=== PATIENT | male | born 1940 | race Caucasian/White ===

== ENCOUNTER 2018-10-31 12:34 | Observation (INO) | payer MEDICARE ==
[2018-10-31] MEDS ORDERED: Sodium Chloride 0.9%, Bacteriostatic 10 ML MDV IV STA (12:38)
--- NOTE | 2018-10-31 13:04 | EDM.PDOC ---
ED HPI GENERAL MEDICAL PROBLEM - General Chief Complaint: Trauma Stated Complaint: ACCIDENT Time Seen by Provider: 10/31/18 12:34 Source of Information: Reports: Patient, EMS, RN - History of Present Illness INITIAL COMMENTS - FREE TEXT/NARRATIVE: 78 yr male presents after falling in water, mild hypothermia and tachycardia, shivering. Temperature 91.4. [place] the [place] for about 30 minutes. He is brought in by ambulance. Pt is alert and has the non-rebreather mask on. Initial EKG on ambulance is atrial flutter. clinical research monitor, IV NACL 500 cc bolus given., Pickering catheter started and rewarming bear hugger and warm pack applied. Pt states he was leaning over to roll picker the minnow bucket and fell into the pearl. 93.3 now 1259, hospital monitor with arrhythmia 70-80's now. Decrease in oxygen to maintain oxygen 92%. Warm Saline 300 cc applied in bladder. Dr Davila in ER upon arrival. 13:12 Vital signs are stable. Pt is talking and shivering. BP 131/67, SpO2= 100% HR 72. History of aortic aneurysm a few months ago. Coronary stent 1 month ago, Bladder cancer is clear now, Ablation for a-fib, PAD and stent in right leg and bypass in left leg. Oxygen per N/C now. 13:36 pt is feeling better and warming and no shivering now. Labs reviewed, no elevation of CK and no elevation of troponin. EKG completed, no previous EKG to compare to this. No ST elevation noted. Reviewed labs and EKG with Dr Davila. Will transfer to observation bed when temperature up to 95 rectal. Will repeat EKG in am. Continue with hospital monitor. One IV fluids at 125cc/ hr. One IV saline lock. - Related Data Home Meds: Home Meds Apixaban [Eliquis] 5 mg PO BID 10/31/18 [History] Cholecalciferol (Vitamin D3) [Vitamin D] 5,000 unit PO DAILY 10/31/18 [History] Levothyroxine [Synthroid] 100 mcg PO ACBREAKFAST 10/31/18 [History] Omeprazole 10 mg PO DAILY 10/31/18 [History] Ranitidine HCl [Ranitidine] 300 mg PO DAILY 10/31/18 [History] Rosuvastatin [Crestor] 10 mg PO DAILY 10/31/18 [History] Tamsulosin [Tamsulosin 24 Hr] 0.4 mg PO DAILY 10/31/18 [History] amLODIPine [Norvasc] 5 mg PO DAILY 10/31/18 [History] Review of Systems - Review of Systems Review Of Systems: See Below Constitutional: Reports: No Symptoms Eyes: Reports: Glasses Ears: Reports: No Symptoms Nose: Reports: No Symptoms Mouth/Throat: Reports: No Symptoms Respiratory: Reports: No Symptoms Cardiovascular: Reports: No Symptoms GI/Abdominal: Reports: No Symptoms Genitourinary: Reports: No Symptoms Musculoskeletal: Reports: No Symptoms Skin: Reports: Other (cold) ED EXAM, GENERAL - Physical Exam Exam: See Below Exam Limited By: No Limitations General Appearance: Alert Ears: Hearing Grossly Normal Head: Atraumatic, Normocephalic Neck: Normal Inspection, Supple, Non-Tender Respiratory/Chest: No Respiratory Distress, Chest Non-Tender Cardiovascular: Regular Rate, Rhythm, No Edema GI/Abdominal: Soft, Non-Tender, No Distention Extremities: Non-Tender Neurological: Alert, Normal Cognition Psychiatric: Normal Affect, Normal Mood Skin Exam: Dry, Cool, Other (initial temp 91.4) Lymphatic: No Adenopathy Course - Vital Signs Last Recorded V/S: Last Vital Signs Temp 98.1 F 10/31/18 16:39 Pulse 80 10/31/18 14:51 Resp 16 10/31/18 16:39 BP 143/66 H 10/31/18 16:39 Pulse Ox 97 10/31/18 16:39 - Orders/Labs/Meds Orders: Active Orders 24 hr Category Date Time Status Cardiac Monitoring [RC] .As Directed Care 10/31/18 12:41 Active EKG Documentation Completion [RC] ASDIRECTED Care 10/31/18 12:40 Active Pickering Catheter Insertion [Insert Urinary Catheter] [OM. Care 10/31/18 13:00 Ordered PC] Q24H Oxygen Therapy Adult [Oxygen Therapy, ED] [RC] Care 10/31/18 12:41 Active ASDIRECTED Urinary Catheter Assessment [RC] ASDIRECTED Care 10/31/18 12:51 Active Warming Measures [Cooling Warming Measures] [RC] Care 10/31/18 12:49 Active ASDIRECTED Sodium Chloride 0.9% [Normal Saline] 500 ml Med 10/31/18 12:45 Active IV ASDIRECTED Sodium Chloride 0.9% [Saline Flush] Med 10/31/18 13:40 Active 10 ml FLUSH ASDIRECTED PRN Saline Lock Insert [OM.PC] Routine Oth 10/31/18 13:40 Ordered Medication Orders Sodium Chloride (Normal Saline) 500 mls @ 500 mls/hr IV ASDIRECTED SAKINA Sodium Chloride (Saline Flush) 10 ml FLUSH ASDIRECTED PRN PRN Reason: Keep Vein Open Labs: Laboratory Tests 10/31/18 10/31/18 10/31/18 Range/Units 12:43 12:43 12:43 WBC 7.1 (4.0-11.0) K/uL RBC 4.84 (4.50-6.50) M/uL Hgb 14.0 (13.0-18.0) g/dL Hct 44.2 (40.0-54.0) % MCV 91 (76-96) fL MCH 28.9 (27.0-32.0) pg MCHC 31.7 (31.0-35.0) g/dL RDW 16.9 H (11.0-16.0) % Plt Count 216 (150-400) K/uL MPV 10.0 (6.0-10.0) fL Neut % (Auto) 61.8 (45.0-70.0) % Lymph % (Auto) 21.1 (20.0-40.0) % [place] % (Auto) 12.0 H (3.0-10.0) % Eos % (Auto) 4.5 (1.0-5.0) % Baso % (Auto) 0.6 H (0.0-0.5) % Neut # (Auto) 4.39 (2.00-7.50) K/uL Lymph # (Auto) 1.50 (1.50-4.00) K/uL [place] # (Auto) 0.85 H (0.20-0.80) K/uL Eos # (Auto) 0.32 (0.04-0.40) K/uL Baso # (Auto) 0.04 (0.02-0.10) K/uL PT 12.4 H (9.0-11.5) sec INR 1.3 (1.0-3.5) APTT 23.4 L (24.4-33.2) SECONDS Sodium 144 (136-145) mmol/L Potassium 4.6 (3.5-5.1) mmol/L Chloride 105 (98-107) mmol/L Carbon Dioxide 28.2 (21.0-32.0) mmol/L Anion Gap 15.4 H (5.0-15.0) mmol/L BUN 31 H (8-26) mg/dL Creatinine 1.42 H (0.70-1.30) mg/dL Est Cr Clr Drug Dosing TNP Estimated GFR (MDRD) 48 L (>60) MLS/MIN BUN/Creatinine Ratio 21.8 (6-25) Glucose 112 H (74-100) mg/dL Calcium 9.0 (8.5-10.1) mg/dL Total Bilirubin 0.4 (0.0-1.0) mg/dL AST 18 (15-37) U/L ALT 17 (12-78) U/L Alkaline Phosphatase 74 (46-116) U/L Creatine Kinase (21-232) U/L Troponin I (0.000-0.060) ng/mL Total Protein 8.1 (6.4-8.2) g/dL Albumin 3.9 (3.4-5.0) g/dL Globulin 4.2 (2.2-4.2) g/dL Albumin/Globulin Ratio 0.9 (0.8-2.0) Urine Color Urine Appearance (CLEAR) Urine pH (5.0-8.0) Ur Specific [place] (1.003-1.030) Urine Protein (NEGATIVE) mg/dL Urine Glucose (UA) (NEGATIVE) mg/dL Urine Ketones (NEGATIVE) mg/dL Urine Occult Blood (NEGATIVE) Urine Nitrite (NEGATIVE) Urine Bilirubin (NEGATIVE) Urine Urobilinogen (0.2-1.0) E.U./dL Ur Leukocyte Esterase (NEGATIVE) Urine RBC /HPF Urine WBC /HPF 10/31/18 10/31/18 Range/Units 12:43 14:58 WBC (4.0-11.0) K/uL RBC (4.50-6.50) M/uL Hgb (13.0-18.0) g/dL Hct (40.0-54.0) % MCV (76-96) fL MCH (27.0-32.0) pg MCHC (31.0-35.0) g/dL RDW (11.0-16.0) % Plt Count (150-400) K/uL MPV (6.0-10.0) fL Neut % (Auto) (45.0-70.0) % Lymph % (Auto) (20.0-40.0) % [place] % (Auto) (3.0-10.0) % Eos % (Auto) (1.0-5.0) % Baso % (Auto) (0.0-0.5) % Neut # (Auto) (2.00-7.50) K/uL Lymph # (Auto) (1.50-4.00) K/uL [place] # (Auto) (0.20-0.80) K/uL Eos # (Auto) (0.04-0.40) K/uL Baso # (Auto) (0.02-0.10) K/uL PT (9.0-11.5) sec INR (1.0-3.5) APTT (24.4-33.2) SECONDS Sodium (136-145) mmol/L Potassium (3.5-5.1) mmol/L Chloride (98-107) mmol/L Carbon Dioxide (21.0-32.0) mmol/L Anion Gap (5.0-15.0) mmol/L BUN (8-26) mg/dL Creatinine (0.70-1.30) mg/dL Est Cr Clr Drug Dosing Estimated GFR (MDRD) (>60) MLS/MIN BUN/Creatinine Ratio (6-25) Glucose (74-100) mg/dL Calcium (8.5-10.1) mg/dL Total Bilirubin (0.0-1.0) mg/dL AST (15-37) U/L ALT (12-78) U/L Alkaline Phosphatase (46-116) U/L Creatine Kinase 82 (21-232) U/L Troponin I 0.032 (0.000-0.060) ng/mL Total Protein (6.4-8.2) g/dL Albumin (3.4-5.0) g/dL Globulin (2.2-4.2) g/dL Albumin/Globulin Ratio (0.8-2.0) Urine Color Yellow Urine Appearance Clear (CLEAR) Urine pH 6.5 (5.0-8.0) Ur Specific [place] 1.020 (1.003-1.030) Urine Protein Negative (NEGATIVE) mg/dL Urine Glucose (UA) Negative (NEGATIVE) mg/dL Urine Ketones Negative (NEGATIVE) mg/dL Urine Occult Blood Moderate H (NEGATIVE) Urine Nitrite Negative (NEGATIVE) Urine Bilirubin Negative (NEGATIVE) Urine Urobilinogen 0.2 (0.2-1.0) E.U./dL Ur Leukocyte Esterase Trace H (NEGATIVE) Urine RBC 10-20 H /HPF Urine WBC 5-10 H /HPF Meds: Medications Generic Name Dose Route Start Last Admin Trade Name Freq PRN Reason Stop Dose Admin Sodium Chloride 500 mls @ 500 mls/hr 10/31/18 12:45 Normal Saline IV ASDIRECTED SAKINA Sodium Chloride 10 ml 10/31/18 13:40 Saline Flush FLUSH ASDIRECTED PRN Keep Vein Open Discontinued Medications Generic Name Dose Route Start Last Admin Trade Name Freq PRN Reason Stop Dose Admin Sodium Chloride 500 ml 10/31/18 12:38 Sodium Chloride 0.9% IV 10/31/18 12:39 NOW STA Departure - Departure Time of Disposition: 14:07 Disposition: Refer to Observation Condition: Serious Clinical Impression: Hypothermia due to exposure - Discharge Information *PRESCRIPTION DRUG MONITORING PROGRAM REVIEWED*: Not Applicable *COPY OF PRESCRIPTION DRUG MONITORING REPORT IN PATIENT HIEN: Not Applicable - My Orders Last 24 Hours: My Active Orders 10/31/18 12:40 EKG Documentation Completion [RC] ASDIRECTED 10/31/18 12:41 Cardiac Monitoring [RC] .As Directed Oxygen Therapy Adult [Oxygen Therapy, ED] [RC] ASDIRECTED 10/31/18 12:45 Sodium Chloride 0.9% [Normal Saline] 500 ml IV ASDIRECTED 10/31/18 12:49 Warming Measures [Cooling Warming Measures] [RC] ASDIRECTED 10/31/18 12:51 Urinary Catheter Assessment [RC] ASDIRECTED 10/31/18 13:00 Pickering Catheter Insertion [Insert Urinary Catheter] [OM.PC] Q24H 10/31/18 13:40 Sodium Chloride 0.9% [Saline Flush] 10 ml FLUSH ASDIRECTED PRN Saline Lock Insert [OM.PC] Routine - Assessment/Plan Last 24 Hours: My Active Orders 10/31/18 12:40 EKG Documentation Completion [RC] ASDIRECTED 10/31/18 12:41 Cardiac Monitoring [RC] .As Directed Oxygen Therapy Adult [Oxygen Therapy, ED] [RC] ASDIRECTED 10/31/18 12:45 Sodium Chloride 0.9% [Normal Saline] 500 ml IV ASDIRECTED 10/31/18 12:49 Warming Measures [Cooling Warming Measures] [RC] ASDIRECTED 10/31/18 12:51 Urinary Catheter Assessment [RC] ASDIRECTED 10/31/18 13:00 Pickering Catheter Insertion [Insert Urinary Catheter] [OM.PC] Q24H 10/31/18 13:40 Sodium Chloride 0.9% [Saline Flush] 10 ml FLUSH ASDIRECTED PRN Saline Lock Insert [OM.PC] Routine Plan: Will place pt on observation after hypothermia. Temperature is improving and 95.1 now. Bear warmer continues. Will continue with hospital monitor. Cardiac diet tonight. Will obtain EKG in am. If pt remains stable, will discharge in am after the EKG.
[2018-10-31] MEDS ORDERED: Sodium Chloride 0.9% 10 ML Syringe FLUSH PRN (13:40)
[2018-10-31] MEDS: Sodium Chloride 0.9% 500 ML IV SCH (14:10)
--- NOTE | 2018-10-31 16:13 | CR ---
DATE OF SERVICE: 10/31/2018 CLINICAL DATA: Hypothermia. SUPINE CHEST: No priors. The heart size is normal. There is calcification of the aortic arch. There is a 1.2 cm rounded nodule in the left lung base overlying the left hemidiaphragm. Chest CT is recommended to further evaluate this. The lungs otherwise clear. No pneumothorax. No pleural effusions. There is degenerative disk disease throughout the thoracic spine. [id number] MTDD
--- NOTE | 2018-10-31 17:45 | PCM.SN ---
- Free Text/Narrative Note: Pt is alert and talkative and feeling better. Temperature is stable 98.1. Pt eating cardiac diet. IV fluids stopped and Saline lock X 2 continues. Pickering catheter d'cd. Notified pt of chest x-ray report and nodule. Pt states he is aware of this and will follow up with his primary provider when returns to the [facility]. Continue with desk monitor and observation. Will obtain EKG in am and plan to discharge if vital signs remain stable.
--- NOTE | 2018-11-01 08:50 | PCM.DCSUM1 ---
Discharge Summary - Hospital Course Free Text/Narrative:: Pt presented to emergency room by EMS S/p cold water immersion in the pearl for about 30 minutes. Pt feel into cold pearl water trying to prevent the bucket of minnows from falling. Pt was shivering, alert and oriented. His Core temperature was 91.4 F. Pt was slowly warmed.Bear hugger was placed with warm blanket. His Workup was negative. His EKG w in atrial flutter. Cardiac enzymes and CK were negative. He did receive warm normal saline. Also had urinary catheter with warm saline flushed into the catheter. Pt's core temperature improved and was around 93.3 and his shivering and shakes improved. As pt core temperature wa improving. He was continued on warming treatment and admitted to hospital for observation. Around 17:41 pm pt's temp was upto 98.1. at which point, pt's IV fluids were discontinued, also his catheter was drained. Pt was on cardiac monitoring over night. He has not had any abnormal rhythm. Pt on morning of 11/01/18 doing well. No complaints. His temperature is 98.6F As patient has been feeling fine and EKG was repeat. Does not show any ST changes. Pt has been planned for discharge. Pt advised to continue his home meds.Advised to followup with Primary care . Brief History: 78 yearold male fell into cold pearl water yesterday and sustained mild hypothermia with intial core temp of 91.4F. Kindly see H&P for details. Diagnosis: Stroke: Yes Modified Niland Scale: No Symptoms at All Modified Niland Scale Score: 0 - Discharge Data Discharge Date: 11/01/18 Discharge Disposition: Home, Self-Care 01 Condition: Good - Patient Instructions Diet: Heart Healthy Diet Fluid Restriction: 1500 mL Activity: As Tolerated Driving: May Drive Today Showering/Bathing: May Shower - Discharge Plan *PRESCRIPTION DRUG MONITORING PROGRAM REVIEWED*: Not Applicable *COPY OF PRESCRIPTION DRUG MONITORING REPORT IN PATIENT HIEN: Not Applicable Home Medications: Home Meds Apixaban [Eliquis] 5 mg PO BID 10/31/18 [History] Cholecalciferol (Vitamin D3) [Vitamin D] 5,000 unit PO DAILY 10/31/18 [History] Levothyroxine [Synthroid] 100 mcg PO ACBREAKFAST 10/31/18 [History] Omeprazole 10 mg PO DAILY 10/31/18 [History] Ranitidine HCl [Ranitidine] 300 mg PO DAILY 10/31/18 [History] Rosuvastatin [Crestor] 10 mg PO DAILY 10/31/18 [History] Tamsulosin [Flomax] 0.4 mg PO DAILY 10/31/18 [History] amLODIPine [Norvasc] 5 mg PO DAILY 10/31/18 [History] Forms: ED Department Discharge Referrals: PCP,None [Primary Care Provider] - - Discharge Summary/Plan Comment DC Time >30 min.: Yes Discharge Summary/Plan Comment: As patient has been feeling fine and EKG was repeat. Does not show any ST changes. Pt has been planned for discharge. Pt advised to continue his home meds.Advised to followup with Primary care . - General Info Subjective Update: Pt has been feeling better today. No shivering. His core body temp is 98.6F. Feeding well. No chest pain or Shortness of breath. - Review of Systems General: Denies: Fever, Fatigue, Malaise HEENT: Denies: Sore Throat, Rhinitis Pulmonary: Denies: Cough, Sputum Cardiovascular: Denies: Chest Pain, Palpitations Gastrointestinal: Denies: Abdominal Pain, Diarrhea, Nausea, Vomiting Genitourinary: Denies: Dysuria, Urgency, Flank Pain Musculoskeletal: Denies: Joint Pain, Joint Swelling Skin: Denies: Bruising, Pruritis, Rash Neurological: Denies: Confusion, Dizziness, Headache, Numbness, Seizure, Tingling - Patient Data Vitals - Most Recent: Last Vital Signs Temp 98.6 F 11/01/18 04:08 Pulse 78 11/01/18 04:08 Resp 20 11/01/18 04:08 BP 121/48 L 11/01/18 04:08 Pulse Ox 90 L 11/01/18 04:08 Weight - Most Recent: 78.925 kg I&O - Last 24 hours: Intake & Output 10/31/18 11/01/18 11/01/18 22:59 06:59 14:59 Intake Total 200 Output Total 575 Balance -375 Lab Results - Last 24 hrs: Laboratory Results - last 24 hr 10/31/18 10/31/18 10/31/18 Range/Units 12:43 12:43 12:43 WBC 7.1 (4.0-11.0) K/uL RBC 4.84 (4.50-6.50) M/uL Hgb 14.0 (13.0-18.0) g/dL Hct 44.2 (40.0-54.0) % MCV 91 (76-96) fL MCH 28.9 (27.0-32.0) pg MCHC 31.7 (31.0-35.0) g/dL RDW 16.9 H (11.0-16.0) % Plt Count 216 (150-400) K/uL MPV 10.0 (6.0-10.0) fL Neut % (Auto) 61.8 (45.0-70.0) % Lymph % (Auto) 21.1 (20.0-40.0) % [place] % (Auto) 12.0 H (3.0-10.0) % Eos % (Auto) 4.5 (1.0-5.0) % Baso % (Auto) 0.6 H (0.0-0.5) % Neut # (Auto) 4.39 (2.00-7.50) K/uL Lymph # (Auto) 1.50 (1.50-4.00) K/uL [place] # (Auto) 0.85 H (0.20-0.80) K/uL Eos # (Auto) 0.32 (0.04-0.40) K/uL Baso # (Auto) 0.04 (0.02-0.10) K/uL PT 12.4 H (9.0-11.5) sec INR 1.3 (1.0-3.5) APTT 23.4 L (24.4-33.2) SECONDS Sodium 144 (136-145) mmol/L Potassium 4.6 (3.5-5.1) mmol/L Chloride 105 (98-107) mmol/L Carbon Dioxide 28.2 (21.0-32.0) mmol/L Anion Gap 15.4 H (5.0-15.0) mmol/L BUN 31 H (8-26) mg/dL Creatinine 1.42 H (0.70-1.30) mg/dL Est Cr Clr Drug Dosing TNP Estimated GFR (MDRD) 48 L (>60) MLS/MIN BUN/Creatinine Ratio 21.8 (6-25) Glucose 112 H (74-100) mg/dL Calcium 9.0 (8.5-10.1) mg/dL Total Bilirubin 0.4 (0.0-1.0) mg/dL AST 18 (15-37) U/L ALT 17 (12-78) U/L Alkaline Phosphatase 74 (46-116) U/L Creatine Kinase (21-232) U/L Troponin I (0.000-0.060) ng/mL Total Protein 8.1 (6.4-8.2) g/dL Albumin 3.9 (3.4-5.0) g/dL Globulin 4.2 (2.2-4.2) g/dL Albumin/Globulin Ratio 0.9 (0.8-2.0) Urine Color Urine Appearance (CLEAR) Urine pH (5.0-8.0) Ur Specific [place] (1.003-1.030) Urine Protein (NEGATIVE) mg/dL Urine Glucose (UA) (NEGATIVE) mg/dL Urine Ketones (NEGATIVE) mg/dL Urine Occult Blood (NEGATIVE) Urine Nitrite (NEGATIVE) Urine Bilirubin (NEGATIVE) Urine Urobilinogen (0.2-1.0) E.U./dL Ur Leukocyte Esterase (NEGATIVE) Urine RBC /HPF Urine WBC /HPF 10/31/18 10/31/18 Range/Units 12:43 14:58 WBC (4.0-11.0) K/uL RBC (4.50-6.50) M/uL Hgb (13.0-18.0) g/dL Hct (40.0-54.0) % MCV (76-96) fL MCH (27.0-32.0) pg MCHC (31.0-35.0) g/dL RDW (11.0-16.0) % Plt Count (150-400) K/uL MPV (6.0-10.0) fL Neut % (Auto) (45.0-70.0) % Lymph % (Auto) (20.0-40.0) % [place] % (Auto) (3.0-10.0) % Eos % (Auto) (1.0-5.0) % Baso % (Auto) (0.0-0.5) % Neut # (Auto) (2.00-7.50) K/uL Lymph # (Auto) (1.50-4.00) K/uL [place] # (Auto) (0.20-0.80) K/uL Eos # (Auto) (0.04-0.40) K/uL Baso # (Auto) (0.02-0.10) K/uL PT (9.0-11.5) sec INR (1.0-3.5) APTT (24.4-33.2) SECONDS Sodium (136-145) mmol/L Potassium (3.5-5.1) mmol/L Chloride (98-107) mmol/L Carbon Dioxide (21.0-32.0) mmol/L Anion Gap (5.0-15.0) mmol/L BUN (8-26) mg/dL Creatinine (0.70-1.30) mg/dL Est Cr Clr Drug Dosing Estimated GFR (MDRD) (>60) MLS/MIN BUN/Creatinine Ratio (6-25) Glucose (74-100) mg/dL Calcium (8.5-10.1) mg/dL Total Bilirubin (0.0-1.0) mg/dL AST (15-37) U/L ALT (12-78) U/L Alkaline Phosphatase (46-116) U/L Creatine Kinase 82 (21-232) U/L Troponin I 0.032 (0.000-0.060) ng/mL Total Protein (6.4-8.2) g/dL Albumin (3.4-5.0) g/dL Globulin (2.2-4.2) g/dL Albumin/Globulin Ratio (0.8-2.0) Urine Color Yellow Urine Appearance Clear (CLEAR) Urine pH 6.5 (5.0-8.0) Ur Specific [place] 1.020 (1.003-1.030) Urine Protein Negative (NEGATIVE) mg/dL Urine Glucose (UA) Negative (NEGATIVE) mg/dL Urine Ketones Negative (NEGATIVE) mg/dL Urine Occult Blood Moderate H (NEGATIVE) Urine Nitrite Negative (NEGATIVE) Urine Bilirubin Negative (NEGATIVE) Urine Urobilinogen 0.2 (0.2-1.0) E.U./dL Ur Leukocyte Esterase Trace H (NEGATIVE) Urine RBC 10-20 H /HPF Urine WBC 5-10 H /HPF Med Orders - Current: Current Medications Sodium Chloride (Saline Flush) 10 ml FLUSH ASDIRECTED PRN PRN Reason: Keep Vein Open Discontinued Medications Sodium Chloride (Normal Saline) 500 mls @ 500 mls/hr IV ASDIRECTED [facility] Last Admin: 10/31/18 14:10 Dose: 500 mls/hr Sodium Chloride (Sodium Chloride 0.9%) 500 ml IV NOW STA Stop: 10/31/18 12:39 - Exam General: Reports: Alert, Oriented HEENT: Reports: Pupils Equal, Pupils Reactive, EOMI, Mucous Membr. Moist/[place] Neck: Reports: Supple Lungs: Reports: Clear to Auscultation, Normal Respiratory Effort Cardiovascular: Reports: Regular Rate, Regular Rhythm GI/Abdominal Exam: Normal Bowel Sounds, Soft, Non-Tender, No Organomegaly, No Distention, No Abnormal Bruit, No Mass, Pelvis Stable Extremities: Normal Inspection, Normal Range of Motion, Non-Tender, No Pedal Edema, Normal Capillary Refill Skin: Reports: Warm, Intact Neurological: Reports: No New Focal Deficit Psy/Mental Status: Reports: Alert, Normal Mood
== END 2018-11-01 09:37 | disposition home or self-care (01) ==
LOC: LB.ED 12:34 → LB.MS 14:19 → UNDOADMOB 14:19 → LB.MS 14:47 → UNDOADMOB 14:47 → LB.MS 15:51
PROVIDERS: ADMIT Nurse Practitioner Family; ATTEND Nurse Practitioner Family
DX: T68.XXXA Hypothermia, initial encounter (principal); I48.92 Unspecified atrial flutter; I73.9 Peripheral vascular disease, unspecified; X31.XXXA Exposure to excessive natural cold, initial encounter; Z95.5 Presence of coronary angioplasty implant and graft; Z95.820 Peripheral vascular angioplasty status with implants and grafts; Z85.51 Personal history of malignant neoplasm of bladder; Z79.01 Long term (current) use of anticoagulants; Z79.899 Other long term (current) drug therapy
CPT/HCPCS: 36415; 51702; 51703; 71045; 80053; 81001; 82550; 84484; 85025; 85610; 85730; 93005; 96360; 96361; 99284-25; A0425; A0429; G0378; J7030